=== PATIENT | female | born 1980 | race Two or more races ===

== ENCOUNTER 2022-02-04 12:13 | Outpatient (CLI) | payer OTHER | END 2022-02-04 12:18 | disposition home or self-care (01) | LOC: PPH VACUNA 12:13 | PROVIDERS: ATTEND Emergency Medicine Pediatric Emergency Medicine | DX: Z23 Encounter for immunization (principal) ==

== ENCOUNTER 2022-05-01 11:20 | Emergency (ER) | payer OTHER ==
[~2022-05-01] VITALS: Ht 162.6 cm; Wt 52.6 kg
[2022-05-01] MEDS ORDERED: ZITHROMAX500 MG PO (17:14)
[2022-05-01] MEDS ORDERED: MUCINEX DM ER1 EAC1 PO (17:14)
[2022-05-01] MEDS ORDERED: SINUS RINSE ST1 EACH NASAL (17:15)
[2022-05-01] MEDS ORDERED: FLONASE ALLERG9.9 ML NASAL (17:15)
== END 2022-05-01 17:25 | disposition home or self-care (01) ==
LOC: ER 11:20
DX: B34.8 Other viral infections of unspecified site (principal)

== ENCOUNTER 2022-12-31 07:55 | Outpatient (CLI) | payer OTHER ==
[~2022-12-31 07:55] MED LIST: FLONASE ALLERG9.9 ML NASAL; MUCINEX DM ER1 EAC1 PO; SINUS RINSE ST1 EACH NASAL; ZITHROMAX500 MG PO
== END 2022-12-31 07:59 | disposition home or self-care (01) ==
LOC: MRI 07:55
DX: D31.61 Benign neoplasm of unspecified site of right orbit (principal)
CPT/HCPCS: 70553

== ENCOUNTER 2023-01-22 09:45 | Outpatient (CLI) | payer OTHER | END 2023-01-22 09:55 | disposition home or self-care (01) | LOC: PPH VACUNA 09:45 | PROVIDERS: ATTEND Emergency Medicine Pediatric Emergency Medicine | DX: Z23 Encounter for immunization (principal) | CPT/HCPCS: 90686; G0008 ==

== ENCOUNTER 2023-07-07 12:37 | Outpatient (CLI) | payer OTHER | END 2023-07-07 12:42 | disposition home or self-care (01) | LOC: RAD 12:37 | PROVIDERS: ATTEND Neurological Surgery | DX: D32.0 Benign neoplasm of cerebral meninges (principal) ==

== ENCOUNTER → 2023-07-07 13:06 | Outpatient (CLI) | payer OTHER ==
[2023-07-07 14:09] LABS: URINE APPEARANCE Cloudy; URINE BILIRRUBIN Negative (NEGATIVE); URINE BLOOD Negative; URINE COLOR Yellow; URINE GLUCOSE Negative (NEGATIVE); URINE LEUKOCYTE Small; URINE NITRATE Negative; URINE PROTEIN Negative (NEGATIVE); URINE UROBILINOGEN 0.2 E.U./dl
[2023-07-07 14:13] LABS: URINE BACTERIA 1491.8 uL (0.0-1933); URINE EPITHELIAL CELLS 56.2 uL (0.0-38.8); URINE RBC 2.8 uL (0.0-20.8); URINE WBC 16.8 uL (0.0-23.2)
[2023-07-07 14:39] LABS: CALCIUM 9.2 mg/dL (8.5-10.1); CREATININE SERUM 0.59 mg/dL (0.55-1.02); GFR 110.73; POTASSIUM 4.1 mEq/L (3.5-5.1)
[2023-07-07 14:54] LABS: HEMATOCRIT 39.8 % (36.0-45.00); HEMOGLOBIN 13.4 g/dL (12.0-15.00); MEAN CELL VOLUME 88.9 fL (80.00-100.00); MEAN CORPUSCULAR HEMOGLOBIN 29.8 pg (27.00-32.0); MEAN CORPUSCULAR HGB CONC 33.6 g/dl (32.0-36.0); PLATELET COUNT 248 K/uL (150-450); RED BLOOD COUNT 4.48 M/uL (4.00-6.00); RED CELL DISTRIBUTION WIDTH 14.3 % (11.5-14.5)
[2023-07-07 15:06] LABS: INR 1.04; PARTIAL THROMBOPLASTIN TIME 25.7 SECONDS (22.0-34.0); PROTHROMBIN TIME 10.9 SECONDS (9.0-11.5)
== END | disposition home or self-care (01) ==
LOC: LAB 13:06
PROVIDERS: ATTEND Neurological Surgery
DX: D32.0 Benign neoplasm of cerebral meninges (principal)

== ENCOUNTER 2024-03-15 04:00 | Outpatient (CLI) | payer OTHER | END 2024-03-15 04:15 | disposition home or self-care (01) | LOC: PPH VACUNA 04:00 | PROVIDERS: ATTEND Emergency Medicine Pediatric Emergency Medicine | DX: Z23 Encounter for immunization (principal) ==

== ENCOUNTER 2024-06-23 09:27 | Outpatient (CLI) | payer OTHER ==
[2024-06-23 11:30] LABS: CALCIUM 9.2 mg/dL (8.5-10.1); CREATININE SERUM 0.6 mg/dL (0.55-1.02); GFR 108.11; POTASSIUM 3.9 mEq/L (3.5-5.1)
== END 2024-06-23 09:28 | disposition home or self-care (01) ==
LOC: LAB 09:27
PROVIDERS: ATTEND Neurological Surgery
DX: D32.0 Benign neoplasm of cerebral meninges (principal)

== ENCOUNTER 2024-07-04 08:51 | Outpatient (CLI) | payer OTHER | END 2024-07-04 08:57 | disposition home or self-care (01) | LOC: MRI 08:51 | PROVIDERS: ATTEND Neurological Surgery | DX: D32.0 Benign neoplasm of cerebral meninges (principal) | CPT/HCPCS: 70553 ==

== ENCOUNTER 2025-01-20 08:03 | Outpatient (CLI) | payer OTHER ==
[2025-01-20 09:51] LABS: BASO % 0.4 % (0.1-1.2); EOS # 0.12 (0.04-0.54); EOS % 2.2 % (0.7-7.0); LYMPH # 1.38 (1.18-3.74); LYMPH % 24.8 % (19.3-53.1); MEAN PLATELET VOLUME 11.60 fl (9.4-12.4); MONO # 0.38 (0.24-0.82); MONO % 6.8 % (4.7-12.5); NEUT # 3.65 (1.56-6.13); NEUT % 65.6 % (34.0-71.1); RED CELL DISTRIBUTION WIDTH 13.7 % (11.6-14.4)
[2025-01-20 10:52] LABS: ALT/SGPT 15.0 U/L (12-78); AST/SGOT 13.0 U/L (15-37); BILIRUBIN TOTAL 0.22 mg/dL (0.3-1.2); BUN CREA RATIO 22.0 (7.0-25.0); CHOL HDL RATIO 2.4 (0-5.0); CREATININE SERUM 0.5 mg/dL (0.55-1.02); GFR 132.83; GLOBULINA 4.2 G/DL (2.4-3.5); GLUCOSE FASTING 75.0 mg/dL (65-100); HDL 74.0 mg/dl (40-60); LDL 90.0 mg/dl (0-130); OSMOLALITY SERUM 277.0 MOSM/KG (275-295); VLDL 15.0 (0-39)
[2025-01-20 10:55] LABS: TSH 5.03 uIU/mL (0.358-3.74)
[2025-01-20 11:13] LABS: URINE BILIRRUBIN NEGATIVE (NEGATIVE); URINE BLOOD NEGATIVE; URINE GLUCOSE NEGATIVE (NEGATIVE); URINE KETONE NEGATIVE (NEGATIVE); URINE LEUKOCYTE TRACE; URINE NITRATE NEGATIVE; URINE PROTEIN NEGATIVE (NEGATIVE); URINE UROBILINOGEN 0.2 E.U./dl
[2025-01-20 11:42] LABS: URINE APPEARANCE CLEAR; URINE COLOR YELLOW
[2025-01-20 11:43] LABS: URINE BACTERIA MANY; URINE CRYSTALS NEGATIVE /HPF; URINE MUCUS NEGATIVE; URINE RBC 0-3 /HPF; URINE WBC 0-2 /hpf
== END 2025-01-20 08:08 | disposition home or self-care (01) ==
LOC: LAB 08:03
DX: D64.9 Anemia, unspecified (principal); R10.84 Generalized abdominal pain; N39.0 Urinary tract infection, site not specified; Z13.21 Encounter for screening for nutritional disorder; Z13.220 Encounter for screening for lipoid disorders; Z13.1 Encounter for screening for diabetes mellitus; Z12.11 Encounter for screening for malignant neoplasm of colon; Z12.5 Encounter for screening for malignant neoplasm of prostate; Z13.0 Encounter for screening for diseases of the blood and blood-forming organs and certain disorders involving the immune mechanism; Z13.228 Encounter for screening for other metabolic disorders; R73.9 Hyperglycemia, unspecified; R94.5 Abnormal results of liver function studies; E20.9 Hypoparathyroidism, unspecified; Z11.3 Encounter for screening for infections with a predominantly sexual mode of transmission; Z20.2 Contact with and (suspected) exposure to infections with a predominantly sexual mode of transmission; D50.8 Other iron deficiency anemias; E55.9 Vitamin D deficiency, unspecified; E27.2 Addisonian crisis; R80.9 Proteinuria, unspecified; N18.9 Chronic kidney disease, unspecified; I13.0 Hypertensive heart and chronic kidney disease with heart failure and stage 1 through stage 4 chronic kidney disease, or unspecified chronic kidney disease

== ENCOUNTER 2025-01-22 07:58 | Outpatient (CLI) | payer OTHER | END 2025-01-22 08:02 | disposition home or self-care (01) | LOC: RAD 07:58 | PROVIDERS: ATTEND Pediatrics Neonatal-Perinatal Medicine | DX: J20.9 Acute bronchitis, unspecified (principal) ==

== ENCOUNTER 2025-03-13 07:23 | Outpatient (CLI) | payer OTHER | END 2025-03-13 07:28 | disposition home or self-care (01) | LOC: MAMO-SONO 07:23 | PROVIDERS: ATTEND Surgery | DX: N60.11 Diffuse cystic mastopathy of right breast (principal); N60.12 Diffuse cystic mastopathy of left breast ==

== ENCOUNTER 2025-03-13 08:00 | Outpatient (CLI) | payer OTHER | END 2025-03-13 08:10 | disposition home or self-care (01) | LOC: PPH VACUNA 08:00 | PROVIDERS: ATTEND Emergency Medicine Pediatric Emergency Medicine | DX: Z23 Encounter for immunization (principal) ==

== ENCOUNTER 2025-04-18 07:25 | Outpatient (CLI) | payer OTHER ==
[2025-04-18 08:17] LABS: URINE APPEARANCE Clear; URINE BILIRRUBIN Negative (NEGATIVE); URINE COLOR Yellow; URINE GLUCOSE Negative (NEGATIVE); URINE KETONE Negative (NEGATIVE); URINE LEUKOCYTE Trace; URINE NITRATE Negative; URINE PROTEIN Negative (NEGATIVE); URINE UROBILINOGEN 0.2 E.U./dl
[2025-04-18 08:18] LABS: URINE BACTERIA 729.2 uL (0.0-1933); URINE EPITHELIAL CELLS 13.3 uL (0.0-38.8); URINE RBC 14.6 uL (0.0-20.8); URINE WBC 47.0 uL (0.0-23.2)
[2025-04-18 08:32] LABS: URINE BLOOD TRACES; URINE CAST 0.00 uL (0.0-1.40)
[2025-04-19 10:07] LABS: ESTRADIOL SERUM 10.3 pg/mL (.)
== END 2025-04-18 07:30 | disposition home or self-care (01) ==
LOC: LAB 07:25
DX: N39.0 Urinary tract infection, site not specified (principal); L68.0 Hirsutism; N91.2 Amenorrhea, unspecified; N92.0 Excessive and frequent menstruation with regular cycle